=== PATIENT | female | born 1980 | race Caucasian/White ===

== ENCOUNTER 2022-06-08 12:15 | Outpatient (CLI) | payer OTHER | END 2022-06-08 12:16 | disposition home or self-care (01) | LOC: CSHWCC 12:15 | PROVIDERS: ATTEND Nurse Practitioner Family | DX: E11.621 Type 2 diabetes mellitus with foot ulcer (principal); L97.516 Non-pressure chronic ulcer of other part of right foot with bone involvement without evidence of necrosis ==

== ENCOUNTER 2022-06-15 12:54 | Outpatient (CLI) | payer SELFPAY | END 2022-06-15 12:55 | disposition home or self-care (01) | LOC: CSHWCC 12:54 | PROVIDERS: ATTEND Nurse Practitioner Family | DX: E11.621 Type 2 diabetes mellitus with foot ulcer (principal); L97.516 Non-pressure chronic ulcer of other part of right foot with bone involvement without evidence of necrosis | CPT/HCPCS: 99212; G0463 ==

== ENCOUNTER 2022-06-29 08:51 | Outpatient (CLI) | payer OTHER, SELFPAY | END 2022-06-29 08:52 | disposition home or self-care (01) | LOC: CSHWCC 08:51 | PROVIDERS: ATTEND Nurse Practitioner Family | DX: E11.621 Type 2 diabetes mellitus with foot ulcer (principal); L97.516 Non-pressure chronic ulcer of other part of right foot with bone involvement without evidence of necrosis | CPT/HCPCS: 99212; G0463 ==

== ENCOUNTER 2022-07-28 08:55 | Outpatient (CLI) | payer SELFPAY | END 2022-07-28 08:56 | disposition home or self-care (01) | LOC: CSHWCC 08:55 | PROVIDERS: ATTEND Nurse Practitioner Family | DX: E11.621 Type 2 diabetes mellitus with foot ulcer (principal); L97.516 Non-pressure chronic ulcer of other part of right foot with bone involvement without evidence of necrosis; R60.0 Localized edema | CPT/HCPCS: 99213; G0463 ==

== ENCOUNTER 2022-08-06 08:05 | Outpatient (CLI) | payer SELFPAY | END 2022-08-06 08:06 | disposition home or self-care (01) | LOC: CSHWCC 08:05 | PROVIDERS: ATTEND Nurse Practitioner Family | DX: E11.621 Type 2 diabetes mellitus with foot ulcer (principal); L97.516 Non-pressure chronic ulcer of other part of right foot with bone involvement without evidence of necrosis | CPT/HCPCS: 99213; G0463 ==

== ENCOUNTER 2022-08-20 08:06 | Outpatient (CLI) | payer SELFPAY | END 2022-08-20 08:07 | disposition home or self-care (01) | LOC: CSHWCC 08:06 | PROVIDERS: ATTEND Nurse Practitioner Family | DX: E11.621 Type 2 diabetes mellitus with foot ulcer (principal); L97.516 Non-pressure chronic ulcer of other part of right foot with bone involvement without evidence of necrosis | CPT/HCPCS: 99212; G0463 ==